=== PATIENT | male | born 1990 | race Caucasian/White ===

== ENCOUNTER 2018-05-16 07:55 | Emergency (ER) | payer MEDICAID ==
[~2018-05-16] VITALS: Ht 160 cm; Wt 83.9 kg
[2018-05-16 08:02] VITALS: BP 123/65
[2018-05-16] MEDS: KETOROLAC 30 MG/ML VIAL IM ONE (08:40)
[2018-05-16] MEDS ORDERED: IBUP-2213 PO (09:17)
[2018-05-16] MEDS: NEOMYCIN/POLYMYXIN/BACITRACIN 0.9 GM/1 PKT TP ONE (09:21)
[2018-05-16 09:32] VITALS: BP 117/58
== END 2018-05-16 09:33 | disposition home or self-care (01) ==
LOC: MED 07:55
DX: S81.012D Laceration without foreign body, left knee, subsequent encounter (principal); X58.XXXD Exposure to other specified factors, subsequent encounter; Z79.899 Other long term (current) drug therapy
CPT/HCPCS: 96372; 99283; J1885